=== PATIENT | male | born 1980 | race Caucasian/White ===

== ENCOUNTER 2017-09-04 08:26 | Emergency (ER) | payer OTHER ==
[2017-09-04 08:45] VITALS: BP 121/76
--- NOTE | 2017-09-04 08:52 | ED Physician Documentation ---
PD HPI NVD - Stated complaint Stated Complaint: VOMITING - Chief complaint Chief Complaint: Abd Pain - History obtained from History obtained from: Patient - History of Present Illness Timing - onset: Last night Timing - details: Abrupt onset, Still present (though tapering) Associated symptoms: Abdominal pain (intermittent crampy.). No: Fever, Hematemesis, Melena, Hematochezia, Dizzy, Near syncope / syncope Contributing factors: Sick contact (his kids and with similar earlier in the week.) Improved by: BM (stomach cramps go away with BM.). No: Vomiting Worsened by: Eating Similar symptoms before: Has not had sx before Recently seen: Not recently seen Review of Systems Constitutional: reports: Myalgias, Fatigue. denies: Fever, Chills Nose: reports: Congestion. denies: Rhinorrhea / runny nose Throat: denies: Sore throat Respiratory: denies: Cough GI: reports: Abdominal Pain, Nausea, Vomiting, Diarrhea : denies: Dysuria, Frequency Skin: denies: Rash, Lesions Neurologic: reports: Generalized weakness. denies: Near syncope PD PAST MEDICAL HISTORY - Past Medical History Cardiovascular: None Respiratory: None Neuro: None Endocrine/Autoimmune: None GI: None - Present Medications Home Medications: Ambulatory Orders Medication Instructions Recorded Confirmed Diphenoxylate HCl/Atropine 1 each PO Q6H PRN #16 tablet 09/04/17 [Diphenoxylate-Atrop 2.5-0.025] Ondansetron Odt [Zofran] 4 mg TL Q6H PRN #10 tablet 09/04/17 - Allergies Allergies/Adverse Reactions: Allergies Allergy/AdvReac Type Severity Reaction Status Date / Time No Known Drug Allergies Allergy Verified 09/04/17 08:45 PD ED PE NORMAL - Vitals Vital signs reviewed: Yes - General General: Alert and oriented X 3, No acute distress, Well developed/nourished - HEENT HEENT: PERRL (nonicteric), Moist mucous membranes, Pharynx benign - Neck Neck: Supple, no meningeal sign, No adenopathy - Cardiac Cardiac: RRR (tachycardic initially, but improved once rested), No murmur - Respiratory Respiratory: Clear bilaterally - Abdomen Abdomen: Normal bowel sounds, Soft, Non tender, Non distended - Neuro Neuro: Alert and oriented X 3, No motor deficit, Normal speech Results - Vitals Vitals: Oxygen O2 Source Room air PD MEDICAL DECISION MAKING - ED course Complexity details: considered differential (He does not look too dehydrated and is vomiting and diarrhea have tapered some. He does not feel well enough to work and should not be working today. We can treat him orally with medications and does not require IV fluids at this time.), d/w patient Departure - Departure Disposition: 01 Home, Self Care Clinical Impression: Nausea vomiting and diarrhea Condition: Stable Record reviewed to determine appropriate education?: Yes Instructions: ED Gastroenteritis Viral Prescriptions: Diphenoxylate HCl/Atropine [Diphenoxylate-Atrop 2.5-0.025] 1 each PO Q6H PRN # 16 tablet PRN Reason: Diarrhea Ondansetron Odt [Zofran] 4 mg TL Q6H PRN #10 tablet PRN Reason: Nausea / Vomiting Comments: This most likely is a viral illness and will last a day or 2. Use ondansetron if needed for persistent nausea. Drink lots of fluids. Progress diet as able. Lomotil if needed for persistent diarrhea. Rest today off work. Tomorrow to if needed. Resume activity as able. Forms: Activity restrictions Discharge Date/Time: 09/04/17 09:16
[2017-09-04] MEDS ORDERED: ONDANSETRON ODT 4 MG TABLET TL STA (09:02)
[2017-09-04] MEDS ORDERED: DIPHENOX/ATROPINE 2.5/0.025 MG TABLET PO STA (09:03)
== END 2017-09-04 09:16 | disposition home or self-care (01) ==
LOC: ED 08:26
DX: R11.2 Nausea with vomiting, unspecified (principal); R19.7 Diarrhea, unspecified
CPT/HCPCS: 99283